=== PATIENT | male | born 1955 | race Caucasian/White ===

== ENCOUNTER 2018-08-23 10:51 | Emergency (ER) | payer BC ==
[2018-08-23 11:06] VITALS: BP 150/95
--- NOTE | 2018-08-23 11:40 | ED ---
Throat Pain/Nasal Congestion - HPI Summary HPI Summary: pain ,discharge from the right ear, with some decrease in hearing, and clear discharge. pain better after discharge began - History of Current Complaint Chief Complaint: UCEar Time Seen by Provider: 08/23/18 11:09 Hx Obtained From: Patient Onset/Duration: Lasting Days Severity: Moderate - Epiglottits Risk Factors Epiglottis Risk Factors: Negative - Allergies/Home Medications Allergies/Adverse Reactions: Allergies Allergy/AdvReac Type Severity Reaction Status Date / Time Sulfa (Sulfonamide Allergy Anaphylatic Verified 08/23/18 11:06 Antibiotics) Shock PMH/Surg Hx/FS Hx/Imm Hx Previously Healthy: Yes Endocrine/Hematology History: Denies: Hx Diabetes Cardiovascular History: Reports: Hx Hypertension - ON MEDICATION Denies: Hx Pacemaker/ICD Respiratory History: Denies: Hx Asthma History: Denies: Hx Renal Disease Sensory History: Reports: Hx Hearing Aid - BILAT Psychiatric History: Denies: Hx Panic Disorder - Cancer History Cancer Type, Location and Year: [facility] Hx Chemotherapy: Yes Hx Radiation Therapy: Yes - Surgical History Surgery Procedure, Year, and Place: BILATERAL ING [facility];. REMOVAL OF TUMOR / MEDIASTINOSTOMY; Infectious Disease History: Yes Infectious Disease History: Reports: Hx Shingles Denies: Traveled Outside the [place] in Last 30 Days - Social History Alcohol Use: None Substance Use Type: Reports: None Smoking Status (MU): Never Smoked Tobacco Review of Systems Constitutional: Negative Eyes: Negative Positive: Other - discharge from right ear, clear Cardiovascular: Negative Respiratory: Negative Gastrointestinal: Negative All Other Systems Reviewed And Are Negative: Yes Physical Exam Triage Information Reviewed: Yes Vital Signs On Initial Exam: Initial Vitals Temp Pulse Resp BP Pulse Ox 36.7 C 65 16 150/95 97 08/23/18 11:01 08/23/18 11:01 08/23/18 11:01 08/23/18 11:01 08/23/18 11:01 Vital Signs Reviewed: Yes Appearance: Positive: Well-Appearing Skin: Positive: Warm Head/Face: Positive: Normal Head/Face Inspection Eyes: Positive: Normal ENT: Positive: Other - negative pain with traction on the right ear, no obvious signs of perforation seen, unable to do insufflation to assess mobility of TM Neck: Positive: Supple Respiratory/Lung Sounds: Positive: Clear to Auscultation Cardiovascular: Positive: Normal Diagnostics - Vital Signs Vital Signs Temp Pulse Resp BP Pulse Ox 08/23/18 11:01 36.7 C 65 16 150/95 97 - Laboratory Lab Statement: Any lab studies that have been ordered have been reviewed, and results considered in the medical decision making process. EENT Course/Dx - Diagnoses Provider Diagnoses: Otitis media Discharge - Sign-Out/Discharge Documenting (check all that apply): Patient Departure All imaging exams completed and their final reports reviewed: No Studies - Discharge Plan Condition: Fair Disposition: HOME Prescriptions: Amoxicillin PO (*) [Amoxicillin 875 MG (*)] 875 mg PO BID #14 tab Fluticasone NASAL SPRAY 50MCG* [Flonase NASAL SPRAY 50MCG*] 2 spray BOTH NARES DAILY #1 btl Patient Education Materials: Ear Infection (ED) Referrals: Franko Stanley MD [Primary Care Provider] - Additional Instructions: silicone ear plugs to keep ear dry while showering - Billing Disposition and Condition Condition: FAIR Disposition: Home
== END 2018-08-23 11:46 | disposition home or self-care (01) ==
LOC: UCEAST 10:51
DX: H66.91 Otitis media, unspecified, right ear (principal); I10 Essential (primary) hypertension; Z88.2 Allergy status to sulfonamides
CPT/HCPCS: 99212; G0463

== ENCOUNTER 2018-09-17 09:39 | Emergency (ER) | payer BC ==
[2018-09-17] MEDS ORDERED: oxyCODONE/Acetamin 5/325 MG* TAB PO ONE (10:30)
[2018-09-17] MEDS ORDERED: Ketorolac INJ* 30 MG/ML 1 ML VIAL IV PUSH ONE (10:30)
[2018-09-17] MEDS ORDERED: Orphenadrine Citrate IV* 30 MG/ML 2 ML VIAL IV ONE (10:30)
[2018-09-17] MEDS ORDERED: Dexamethasone IV* 4 MG/ML 1 ML (4 MG) IV SLOW PU ONE (10:30)
--- NOTE | 2018-09-17 10:32 | ED ---
Back Pain - HPI Summary HPI Summary: This patient is a 63 year old M presenting to [facility] accompanied by with a chief complaint of sharp pain in lower back above R hip that began after a strong cough that occurred at 0900 this morning. The patient rates the pain 8/ 10 in severity. Symptoms aggravated by movement. Symptoms alleviated by nothing. Patient denies urinary and bowel symptoms. - History of Current Complaint Chief Complaint: EDHipPelvisInjury Stated Complaint: RT HIP PAIN Time Seen by Provider: 09/17/18 10:23 Hx Obtained From: Patient Onset/Duration: Sudden Onset, Lasting Hours, Still Present Timing: Constant Back Pain Location: Is Discrete @ - Lower back, just above R hip Severity Initially: Severe Severity Currently: Severe Pain Intensity: 8 Pain Scale Used: 0-10 Numeric Character: Sharp Aggravating Symptom(s): Movement Alleviating Symptom(s): Nothing - Allergies/Home Medications Allergies/Adverse Reactions: Allergies Allergy/AdvReac Type Severity Reaction Status Date / Time Sulfa (Sulfonamide Allergy Anaphylatic Verified 08/23/18 11:06 Antibiotics) Shock PMH/Surg Hx/FS Hx/Imm Hx Previously Healthy: No Endocrine/Hematology History: Denies: Hx Diabetes Cardiovascular History: Reports: Hx Hypertension - ON MEDICATION Denies: Hx Pacemaker/ICD Respiratory History: Denies: Hx Asthma History: Denies: Hx Renal Disease Sensory History: Reports: Hx Hearing Aid - BILAT Psychiatric History: Denies: Hx Panic Disorder - Cancer History Cancer Type, Location and Year: [facility] Hx Chemotherapy: Yes Hx Radiation Therapy: Yes - Surgical History Surgery Procedure, Year, and Place: BILATERAL ING [facility];. REMOVAL OF TUMOR / MEDIASTINOSTOMY; Infectious Disease History: No Infectious Disease History: Reports: Hx Shingles Denies: Traveled Outside the [place] in Last 30 Days - Family History Known Family History: Positive: Cardiac Disease - Brother, Diabetes - Sister - Social History Occupation: Employed Full-time Lives: With Family Alcohol Use: None Hx Substance Use: No Substance Use Type: Reports: None Hx Tobacco Use: No Smoking Status (MU): Never Smoked Tobacco Review of Systems Gastrointestinal: Negative Genitourinary: Negative Positive: Other - Positive back pain All Other Systems Reviewed And Are Negative: Yes Physical Exam - Summary Physical Exam Summary: VITAL SIGNS: Reviewed. GENERAL: Patient is a well-developed and nourished male who is lying comfortable in the stretcher. Patient is not in any acute respiratory distress. HEAD AND FACE: No signs of trauma. No ecchymosis, hematomas or skull depressions. No sinus tenderness. EYES: PERRLA, EOMI x 2, No injected conjunctiva, no nystagmus. EARS: Hearing grossly intact. Ear canals and tympanic membranes are within normal limits. MOUTH: Oropharynx within normal limits. NECK: Supple, trachea is midline, no adenopathy, no JVD, no carotid bruit, no c- spine tenderness, neck with full ROM. CHEST: Symmetric, no tenderness at palpation LUNGS: Clear to auscultation bilaterally. No wheezing or crackles. CVS: Regular rate and rhythm, S1 and S2 present, no murmurs or gallops appreciated. ABDOMEN: Soft, non-tender. No signs of distention. No rebound no guarding, and no masses palpated. Bowel sounds are normal. MUSCULOSKELETAL: Tenderness in the paraspinal muscle and the lumbar spine on the right side. No urinary or bowel dysfunction. Pain is localized to the right , lower lumbar area. EXTREMITIES: FROM in all major joints, no edema, no cyanosis or clubbing. NEURO: Alert and oriented x 3. No acute neurological deficits. Speech is normal and follows commands. SKIN: Dry and warm Triage Information Reviewed: Yes Vital Signs On Initial Exam: Initial Vitals Temp Pulse Resp BP Pulse Ox 98.1 F 66 16 168/93 98 09/17/18 09:39 09/17/18 09:39 09/17/18 09:39 09/17/18 09:39 09/17/18 09:39 Vital Signs Reviewed: Yes Diagnostics - Vital Signs Vital Signs Temp Pulse Resp BP Pulse Ox 09/17/18 09:45 70 98 09/17/18 09:43 68 168/93 97 09/17/18 09:39 98.1 F 66 16 168/93 98 - Laboratory Result Diagrams: 09/17/18 11:21 09/17/18 11:21 Lab Statement: Any lab studies that have been ordered have been reviewed, and results considered in the medical decision making process. - Radiology Lumbar Spine XR Radiology Interpretation Completed By: Radiologist Summary of Radiographic Findings: Lumbar spine XR reveals, per radiologist, mild to moderate degenerative disc disease. ED physician has reviewed this radiology report. Hip/Pelvis XR Radiology Interpretation Completed By: Radiologist Summary of Radiographic Findings: Hip/Pelvis XR reveals, per radiologist, moderate bilateral osteoarthritic change in the hips. ED physician has reviewed this radiology report. - CT Lumbar Spine CR CT Interpretation Completed By: Radiologist Summary of CT Findings: Lumbar spine CT reveals, per radiologist, THERE IS DIFFUSE DEGENERATIVE DISC DISEASE AND FACET OSTEOARTHRITIS GIVING RISE TO MILD SPINAL CANAL NARROWING AT THE L2-L3 LEVEL, MODERATE TO SEVERE SPINAL CANAL NARROWING AT THE L3-L4 LEVEL AND SEVERE SPINAL CANAL NARROWING AT THE L4-L5 LEVEL. THERE APPEARS BE SLIGHT PROGRESSION FROM THE PRIOR STUDY. ED physician has reviewed this radiology report. Re-Evaluation - Re-Evaluation First Eval Re-Evaluation Time: 11:55 Change: Improved Comment: Patient reports his symptoms have improved. Back Pain Course/Dx - Course Assessment/Plan: 53-year-old male presents with right-sided lower back pain after he forcibly coughed. He reports pain is 8 out of 10. He has difficulty ambulating. Pain is not radiating, he denies any urinary of fecal dysfunction. During the physical exam he has good femoral and pedal pulses. Patient has good strength and good sensitivity. Patient has no history of fevers, chills, he is not a smoker has no history of cancer. X-ray of the right hip and pelvis impression: Moderate bilateral osteoarthritic changes in the hips. X-ray of the lumbar spine impression: Mild to moderate degenerative disc disease. In the ED course the patient was given Toradol, Norflex, Decadron, and a Percocet for pain. We tried to ambulate the patient however, he needed a walker in order to ambulate and he is the complain of severe pain. Therefore, patient was given morphine for pain and the will perform a CT of the lumbar spine. I also order blood work was patient. Blood work without any significant abnormality except for glucose of 108 and total bili is 1.5. Urinalysis is negative for UTI digit has 2+ blood. CT lumbar spine IMPRESSION: THERE IS DIFFUSE DEGENERATIVE DISC DISEASE AND FACET OSTEOARTHRITIS GIVING RISE TO MILD SPINAL CANAL NARROWING AT THE L2-L3 LEVEL, MODERATE TO SEVERE SPINAL CANAL. NARROWING AT THE L3-L4 LEVEL AND SEVERE SPINAL CANAL NARROWING AT THE L4-L5 LEVEL. THERE APPEARS BE SLIGHT PROGRESSION FROM THE PRIOR STUDY. After the patient received morphine the symptoms significantly improved. This point the patient is able to ambulate with a good steady walk however he still having pain 3 out of 10. The patient reports no urinary or fecal dysfunction, he has no saddle anesthesia. He declined rectal exam. Since the patient is feeling better the patient will be discharged home with follow-up with primary care physician. Patient was given instructions to return to the emergency department he he develops any urinary or fecal dysfunction, increase in pain, fevers or chills, or any other symptom. The patient understands and agrees. - Diagnoses Differential Diagnosis/HQI/PQRI: Positive: Cauda Equina Syndrome, Compressive Cord Syndrome, Epidural Abscess, Herniated Disc, Strain, Sprain Provider Diagnoses: Acute back pain Discharge - Sign-Out/Discharge Documenting (check all that apply): Patient Departure - Discharge home Patient Received Moderate/Deep Sedation with Procedure: No - Discharge Plan Condition: Stable Disposition: HOME Prescriptions: Ibuprofen TAB* [Motrin TAB* 800 MG] 800 mg PO Q8H PRN #30 tab PRN Reason: Pain Methocarbamol TAB* [Robaxin 500 MG TAB*] 500 mg PO TID PRN #12 tab PRN Reason: Spasms - Back oxyCODONE/Acetamin 5/325 MG* [Percocet 5/325 TAB*] 1 tab PO Q6H PRN #12 tab MDD 4 PRN Reason: Pain Patient Education Materials: Ibuprofen (By mouth), Methocarbamol (By mouth), Oxycodone/Aspirin (By mouth), Back Pain (ED) Referrals: Franko Stanley MD [Primary Care Provider] - 2 Days Additional Instructions: RETURN TO THE EMERGENCY DEPARTMENT FOR NEW OR WORSENING SYMPTOMS - Billing Disposition and Condition Condition: STABLE Disposition: Home - Attestation Statements Document Initiated by French: Yes Documenting Scribe: Marlee Núñez Provider For Whom French is Documenting (Include Credential): Dr. Maxi Cooney MD Scribe Attestation: Marlee Puentes scribed for Dr. Maxi Cooney MD on 09/17/18 at 2053. Scribe Documentation Reviewed: Yes Provider Attestation: The documentation as recorded by the Marlee richards accurately reflects the service I personally performed and the decisions made by me, Dr. Maxi Cooney MD Status of Scribe Document: Viewed
[2018-09-17 12:35] LABS: ABS Basophils 0 10^3/ul (0-0.2); ABS Eosinophils 0 10^3/ul (0-0.6); ABS Lymphocytes 1.3 10^3/ul (1.0-4.8); ABS Monocytes 0.2 10^3/ul (0-0.8); ABS Neutrophils 5.3 10^3/ul (1.5-7.7); ABS Nucleated RBC 0 10^3/ul; Eosinophil % 0.2 %; Hematocrit 43 % (42-52); Hemoglobin 14.9 g/dl (14.0-18.0); Lymphocyte % 18.5 %; Mean Corpuscular HGB Conc 35 g/dl (31-36); Mean Corpuscular Hemoglobin 31 pg (27-31); Mean Corpuscular Volume 91 fL (80-94); Mean Platelet Volume 8.3 fL (7.4-10.4); Nucleated Red Blood Cells % 0; Platelet Count 164 10^3/ul (150-450); Red Blood Count 4.75 10^6/ul (4.00-5.40); Red Cell Distribution Width 13 % (10.5-15); White Blood Count 6.8 10^3/ul (3.5-10.8)
[2018-09-17 12:51] LABS: C Reactive Protein 3.15 mg/L (<8.01)
[2018-09-17 13:04] LABS: Albumin 4.2 g/dL (3.2-5.2); Albumin/Globulin Ratio 1.2 (1-3); BUN/Creatinine Ratio 16.5 (8-20); Calcium 9.8 mg/dL (8.6-10.3); EGFR African American 77.5 (>60); Globulin 3.5 g/dL (2-4); Total Bilirubin 1.5 mg/dL (0.2-1.0); Total Protein 7.7 g/dL (6.4-8.9)
[2018-09-17 13:17] LABS: Urine Appearance Cloudy; Urine Bacteria Absent (Absent); Urine Bilirubin Negative (Negative); Urine Blood 3+ (Negative); Urine Color Yellow; Urine Glucose Negative (Negative); Urine Ketones Negative (Negative); Urine Nitrite Negative (Negative); Urine Protein Negative (Negative); Urine Red Blood Cell 3+(>10/hpf) (Absent); Urine Specific Gravity 1.016 (1.010-1.030); Urine Urobilinogen Negative (Negative); Urine White Blood Cell Trace(0-5/hpf) (Absent)
[2018-09-17 13:53] VITALS: BP 153/92
[2018-09-17 14:28] LABS: Erythrocyte Sed Rate 52 mm/Hr (0-20)
== END 2018-09-17 13:53 | disposition home or self-care (01) ==
LOC: ED 09:39
DX: M54.5 Low back pain (principal); M25.551 Pain in right hip; Z88.2 Allergy status to sulfonamides
CPT/HCPCS: 36415; 72100; 72131; 80053; 81003; 81015; 83605; 85025; 85652; 86140; 87086; 99283; A9270-GY; J1100; J1885; J2360